=== PATIENT | male | born 1955 | race Caucasian/White ===

== ENCOUNTER → 2017-11-06 | Outpatient (CLI) | payer OTHER ==
[~2017-11-06] MED LIST: OMNIPAQUE 350 MG/ML, 100ML BOTTLE ONE
== END | disposition home or self-care (01) ==
LOC: CFH 12:01
PROVIDERS: ATTEND Thoracic Surgery (Cardiothoracic Vascular Surgery)
DX: I71.9 Aortic aneurysm of unspecified site, without rupture (principal)
CPT/HCPCS: 71275; 82565; Q9967

== ENCOUNTER 2017-11-16 17:17 | Inpatient (IN) | payer OTHER ==
[~2017-11-16] VITALS: Ht 175.3 cm; Wt 100.6 kg
[2017-11-16] MEDS ORDERED: TRAZ50TA18 PO (17:44)
[2017-11-16] MEDS ORDERED: ATOR40TA78 PO (17:44)
[2017-11-16] MEDS ORDERED: DULO20CA45 PO (17:44)
[2017-11-16] MEDS ORDERED: ALLO100T30 PO (17:44)
[2017-11-16] MEDS ORDERED: GABA300C10 PO ×3 (17:44→21:32)
[2017-11-16] MEDS ORDERED: OMEP-110 PO (17:44)
[2017-11-16] MEDS ORDERED: SODIUM CHLORIDE FLUSH 10ML SYR IVF ONE (18:00)
[2017-11-16] MEDS ORDERED: PLEASE ENTER ALLERGIES MC SCH (18:00)
[2017-11-16 18:25] LABS: BASOPHILS # (AUTO) 0.05 x10^3/uL (0-0.1); BASOPHILS % (AUTO) 1 % (0-1); EOSINOPHILS # (AUTO) 0.08 x10^3/uL (0-0.4); EOSINOPHILS % (AUTO) 1 % (1-7); LYMPHOCYTES % (AUTO) 36 % (22-44); MD NO; MEAN CORPUSCULAR HEMOGLOBIN 34.8 pg (27.5-34.5); MEAN CORPUSCULAR HGB CONC 34.8 g/dL (33.2-36.2); MEAN CORPUSCULAR VOLUME 100.1 fL (81-97); MEAN PLATELET VOLUME 7.6 fL (7.4-10.4); MONOCYTES % (AUTO) 10 % (2-9); NEUTROPHILS # (AUTO) 3.84 x10^3/uL (1.8-6.8); NEUTROPHILS % (AUTO) 53 % (42-75); PLATELET COUNT 182 x10^3/uL (130-400); RED BLOOD COUNT 4.68 x10^6/uL (4.38-5.82); RED CELL DISTRIBUTION WIDTH 13.4 % (9.4-14.8)
[2017-11-16] MEDS ORDERED: DICL75TA2 PO (18:26)
[2017-11-16] MEDS ORDERED: CYCL-259 PO (18:26)
[2017-11-16] MEDS ORDERED: INDO25CA PO (18:26)
[2017-11-16] MEDS ORDERED: CHOL100012 PO (18:26)
[2017-11-16] MEDS ORDERED: CYAN100028 PO (18:26)
[2017-11-16 18:34] LABS: INTERNATIONAL NORMALIZED RATIO 0.96 (0.93-1.1)
[2017-11-16 18:37] LABS: ALANINE AMINOTRANSFERASE 78 U/L (12-78); ALBUMIN 3.8 g/dL (3.4-5.0); ANION GAP 10 mmol/L (5-15); CALCIUM 8.2 mg/dL (8.5-10.1); CHLORIDE 108 mmol/L (98-107); CREATININE 1.12 mg/dL (0.7-1.3)
[2017-11-16 18:41] LABS: ALKALINE PHOSPHATASE 91 U/L (45-117); BILIRUBIN,TOTAL 0.6 mg/dL (0.2-1.0); TOTAL PROTEIN 7.3 g/dL (6.4-8.2); TROPONIN I 0.029 ng/mL (0.000-0.045)
[2017-11-16] MEDS ORDERED: POLYETHYLENE GLYCOL 17 GM PACKET PO PRN (20:30)
[2017-11-16] MEDS ORDERED: NICOTINE 21 MG/24 HR PATCH.TD24 TD SCH (20:30)
[2017-11-16] MEDS ORDERED: BISACODYL 10 MG SUPP PR PRN (20:30)
[2017-11-16] MEDS ORDERED: ONDANSETRON 2MG/ML, 2ML IVPush PRN (20:30)
[2017-11-16] MEDS ORDERED: morphine SULFATE 10 MG/ML, 1ML IVPush PRN (20:30)
[2017-11-16] MEDS ORDERED: CYCLOBENZAPRINE 10 MG TABLET PO PRN (20:30)
[2017-11-16] MEDS ORDERED: ACETAMINOPHEN 325 MG TABLET PO PRN (20:30)
[2017-11-16] MEDS ORDERED: NITROGLYCERIN 0.4 MG BOTTLE (25 TABS) SL PRN (20:30)
[2017-11-16] MEDS ORDERED: ATORVASTATIN 40 MG TABLET PO SCH (21:00)
[2017-11-16 21:40] VITALS: BP 121/69
[2017-11-16] MEDS: SODIUM CHLORIDE FLUSH 10ML SYR IVF SCH (23:04)
[2017-11-16] MEDS: HEPARIN 5,000 UNITS/ML, 1ML SQ SCH (23:04)
[2017-11-17 00:58] LABS: TROPONIN I 0.026 ng/mL (0.000-0.045)
[2017-11-17 04:19] VITALS: BP 146/77
[2017-11-17 05:36] LABS: CHLORIDE 106 mmol/L (98-107)
[2017-11-17 05:39] LABS: BASOPHILS # (AUTO) 0.04 x10^3/uL (0-0.1); BASOPHILS % (AUTO) 1 % (0-1); EOSINOPHILS # (AUTO) 0.12 x10^3/uL (0-0.4); EOSINOPHILS % (AUTO) 2 % (1-7); LYMPHOCYTES # (AUTO) 1.64 x10^3/uL (1-3.4); LYMPHOCYTES % (AUTO) 29 % (22-44); MD NO; MEAN CORPUSCULAR HEMOGLOBIN 34.4 pg (27.5-34.5); MEAN CORPUSCULAR HGB CONC 34.9 g/dL (33.2-36.2); MEAN CORPUSCULAR VOLUME 98.6 fL (81-97); MEAN PLATELET VOLUME 7.6 fL (7.4-10.4); MONOCYTES # (AUTO) 0.45 x10^3/uL (0.2-0.8); MONOCYTES % (AUTO) 8 % (2-9); NEUTROPHILS # (AUTO) 3.42 x10^3/uL (1.8-6.8); NEUTROPHILS % (AUTO) 60 % (42-75); PLATELET COUNT 161 x10^3/uL (130-400); RED BLOOD COUNT 4.66 x10^6/uL (4.38-5.82); RED CELL DISTRIBUTION WIDTH 13.7 % (9.4-14.8)
[2017-11-17 05:47] LABS: ALANINE AMINOTRANSFERASE 82 U/L (12-78); ALBUMIN 3.6 g/dL (3.4-5.0); ALKALINE PHOSPHATASE 81 U/L (45-117); ANION GAP 12 mmol/L (5-15); BILIRUBIN,TOTAL 0.8 mg/dL (0.2-1.0); CREATININE 1.03 mg/dL (0.7-1.3); TROPONIN I 0.023 ng/mL (0.000-0.045)
[2017-11-17 07:40] VITALS: BP 168/77
[2017-11-17] MEDS: SODIUM CHLORIDE FLUSH 10ML SYR IVF SCH (08:27)
[2017-11-17] MEDS: HEPARIN 5,000 UNITS/ML, 1ML SQ SCH (08:27)
[2017-11-17] MEDS ORDERED: ALLOPURINOL 100 MG TABLET PO SCH (09:00)
[2017-11-17] MEDS ORDERED: DICLOFENAC SODIUM 75 MG TABLET.DR PO SCH (09:00)
[2017-11-17] MEDS ORDERED: SENNA/DOCUSATE TABLET PO SCH (09:00)
[2017-11-17] MEDS ORDERED: CHOLECALCIFEROL 1,000 UNIT TABLET PO SCH (09:00)
[2017-11-17] MEDS ORDERED: GABAPENTIN 300 MG CAPSULE PO SCH (09:00)
[2017-11-17] MEDS ORDERED: TRAZODONE 50MG TABLET PO SCH (09:00)
[2017-11-17] MEDS ORDERED: CYANOCOBALAMIN 1,000 MCG TABLET PO SCH (09:00)
[2017-11-17] MEDS ORDERED: DULOXETINE 30 MG CAPSULE.DR PO SCH (09:00)
[2017-11-17] MEDS ORDERED: INDOMETHACIN 25 MG CAPSULE PO SCH (09:00)
[2017-11-17] MEDS ORDERED: OMEPRAZOLE 20 MG CAPSULE.DR PO SCH (09:00)
[2017-11-17 14:22] VITALS: BP 175/84
== END 2017-11-17 15:22 | disposition home or self-care (01) | DRG 303 ==
LOC: ED 18:26 → EDIP 19:10 → 5SO 22:21 → DCLOUNGE 11-17 15:09
PROVIDERS: ADMIT Internal Medicine; ATTEND Internal Medicine
DX: I25.10 Atherosclerotic heart disease of native coronary artery without angina pectoris (principal); E11.9 Type 2 diabetes mellitus without complications; E78.5 Hyperlipidemia, unspecified; F10.10 Alcohol abuse, uncomplicated; F12.10 Cannabis abuse, uncomplicated; M10.9 Gout, unspecified; F17.210 Nicotine dependence, cigarettes, uncomplicated; I10 Essential (primary) hypertension; I35.0 Nonrheumatic aortic (valve) stenosis; Z82.49 Family history of ischemic heart disease and other diseases of the circulatory system; Z95.1 Presence of aortocoronary bypass graft
CPT/HCPCS: 36415; 71045; 80053; 84484; 85025; 85610; 85730; 93005; 99285; J1644

== ENCOUNTER 2017-11-20 04:08 | Inpatient (IN) | payer OTHER ==
[2017-11-19 14:42] LABS: MICROSCOPIC AUTO
[2017-11-19 14:47] LABS: BASOPHILS # (AUTO) 0.03 x10^3/uL (0-0.1); BASOPHILS % (AUTO) 1 % (0-1); EOSINOPHILS # (AUTO) 0.05 x10^3/uL (0-0.4); EOSINOPHILS % (AUTO) 1 % (1-7); LYMPHOCYTES # (AUTO) 2.04 x10^3/uL (1-3.4); LYMPHOCYTES % (AUTO) 31 % (22-44); MD NO; MEAN CORPUSCULAR HGB CONC 34.5 g/dL (33.2-36.2); MEAN CORPUSCULAR VOLUME 98.5 fL (81-97); MEAN PLATELET VOLUME 7.3 fL (7.4-10.4); MONOCYTES # (AUTO) 0.56 x10^3/uL (0.2-0.8); MONOCYTES % (AUTO) 9 % (2-9); NEUTROPHILS # (AUTO) 3.88 x10^3/uL (1.8-6.8); NEUTROPHILS % (AUTO) 59 % (42-75); PLATELET COUNT 169 x10^3/uL (130-400); RED BLOOD COUNT 4.93 x10^6/uL (4.38-5.82); RED CELL DISTRIBUTION WIDTH 13.7 % (9.4-14.8)
[2017-11-19 15:03] LABS: ALANINE AMINOTRANSFERASE 93 U/L (12-78); ALBUMIN 4.1 g/dL (3.4-5.0); ANION GAP 8 mmol/L (5-15); CALCIUM 9.2 mg/dL (8.5-10.1); CHLORIDE 107 mmol/L (98-107); CREATININE 1.15 mg/dL (0.7-1.3)
[2017-11-19 15:04] LABS: INTERNATIONAL NORMALIZED RATIO 0.99 (0.93-1.1); PROTHROMBIN TIME 10.3 Seconds (9.6-11.5)
[2017-11-19 15:05] LABS: ALKALINE PHOSPHATASE 82 U/L (45-117); BILIRUBIN,TOTAL 1.5 mg/dL (0.2-1.0); TOTAL PROTEIN 7.9 g/dL (6.4-8.2)
[2017-11-19 15:23] LABS: HEMOGLOBIN A1C 4.5 % (4.2-6.3)
[~2017-11-20] VITALS: Ht 175.3 cm; Wt 100.4 kg
[~2017-11-20 04:08] MED LIST changes: +ALLO100T30 PO; +ATOR40TA78 PO; +CHOL100012 PO; +CYAN100028 PO; +CYCL-259 PO; +DICL75TA2 PO; +DULO20CA45 PO; +GABA300C10 PO; +INDO25CA PO; +OMEP-110 PO; -OMNIPAQUE 350 MG/ML, 100ML BOTTLE ONE; +TRAZ50TA18 PO
[2017-11-20 05:46] VITALS: BP_SYST 124; BP_SYST 126; BP_DIAS 75; BP_DIAS 79
[2017-11-20] MEDS ORDERED: DO NOT GIVE MC SCH (06:00)
[2017-11-20] MEDS ORDERED: CHLORHEXIDINE 15 ML BOTTLE MM SCH (06:00)
[2017-11-20] MEDS ORDERED: INSULIN LISPRO 100 UNITS/ML, PEN SQ-INSULIN SCH (06:00)
[2017-11-20] MEDS ORDERED: SUFentanil 50 MCG/ML, 5ML ONE (06:54)
[2017-11-20] MEDS ORDERED: MIDAZOLAM 10MG/2 ML ONE (06:54)
[2017-11-20] MEDS ORDERED: HEPARIN 1,000 UNITS/ML, 10ML ONE (06:56)
[2017-11-20] MEDS ORDERED: CEFUROXIME 1.5 GM in SODIUM CHLORIDE 0.9% 50 ML IVPB PRN (07:30)
[2017-11-20] MEDS ORDERED: PHENYLEPHRINE 10 MG in SODIUM CHLORIDE 0.9% 249 ML IV PRN (07:30)
[2017-11-20] MEDS ORDERED: VANCOMYCIN 1,500 MG in SODIUM CHLORIDE 0.9% 250 ML IV PRN (07:30)
[2017-11-20] MEDS ORDERED: ALBUMIN HUMAN 5% 500 ML IV PRN (07:30)
[2017-11-20] MEDS ORDERED: POTASSIUM CHLORIDE 80 MEQ, SODIUM BICARBONATE 8.4% 10 MEQ, MAGNESIUM SULFATE 0.5 GM, LI... IV PRN (07:30)
[2017-11-20] MEDS ORDERED: REGULAR INSULIN 62.5 UNITS in SODIUM CHLORIDE 0.9% 249.375 ML IV PRN ×2 (07:30→11:25)
[2017-11-20] MEDS ORDERED: EPINEPHRINE 2 MG in SODIUM CHLORIDE 0.9% 248 ML IV SCH (07:30)
[2017-11-20] MEDS ORDERED: DEXMEDETOMIDINE 200 MCG in SODIUM CHLORIDE 0.9% 48 ML IV SCH (07:30)
[2017-11-20] MEDS ORDERED: MANNITOL PMX 20% 500 ML IVPB PRN (07:30)
[2017-11-20] MEDS ORDERED: MUPIROCIN OINT 2%, 22GM TP SCH (09:00)
[2017-11-20] MEDS: DOCUSATE 100 MG CAPSULE PO SCH ×2 (09:00→20:23)
[2017-11-20] MEDS ORDERED: SODIUM CHLORIDE FLUSH 10ML SYR IVF SCH (09:00)
[2017-11-20] MEDS ORDERED: PROPOFOL 10 MG/ML, 20ML ONE ×2 (09:06→09:07)
[2017-11-20] MEDS ORDERED: VASOPRESSIN 20 UNIT/ML, 1ML ONE (09:06)
[2017-11-20] MEDS ORDERED: EPINEPHRINE 1 MG/ML, 1ML ONE (09:06)
[2017-11-20] MEDS ORDERED: ROCURONIUM 10MG/ML,5ML ONE (09:07)
[2017-11-20] MEDS ORDERED: PROTAMINE SULFATE 10 MG/ML, 25ML ONE ×2 (09:27)
[2017-11-20] MEDS ORDERED: AMIODARONE 50 MG/ML, 3ML ONE (09:57)
[2017-11-20] MEDS ORDERED: THROMBIN 5,000 UNIT VIAL TP ONE ×2 (10:20→10:25)
[2017-11-20] MEDS ORDERED: DIAZEPAM 5 MG/ML, 2ML ONE (11:07)
[2017-11-20] MEDS ORDERED: DEXMEDETOMIDINE 200 MCG in SODIUM CHLORIDE 0.9% 48 ML IV PRN (11:25)
[2017-11-20] MEDS ORDERED: VASOPRESSIN 50 UNIT in SODIUM CHLORIDE 0.9% 250 ML IV PRN (11:25)
[2017-11-20] MEDS ORDERED: DOBUTAMINE 250 MG in SODIUM CHLORIDE 0.9% 230 ML IV PRN (11:25)
[2017-11-20] MEDS ORDERED: NITROGLYCERIN/D5W PMX 250 ML IV PRN (11:25)
[2017-11-20] MEDS ORDERED: SODIUM CHLORIDE 0.9% 1,000 ML IV PRN (11:25)
[2017-11-20] MEDS ORDERED: BISACODYL 5 MG EC TABLET PO PRN (11:30)
[2017-11-20] MEDS ORDERED: ACETAMINOPHEN 325 MG TABLET PO PRN (11:30)
[2017-11-20] MEDS ORDERED: GLUCAGON 1 MG IM PRN (11:30)
[2017-11-20] MEDS ORDERED: BISACODYL 10 MG SUPP PR PRN (11:30)
[2017-11-20] MEDS ORDERED: DEXTROSE 50%, 50ML SYRINGE IVPush PRN (11:30)
[2017-11-20] MEDS ORDERED: DEXTROSE 4 GM TAB.CHEW PO PRN (11:30)
[2017-11-20] MEDS ORDERED: INSULIN REGULAR 100 UNITS/ML, 3ML VIAL IVPush PRN (11:30)
[2017-11-20] MEDS ORDERED: LACTATED RINGERS 1,000 ML IV PRN (11:30)
[2017-11-20] MEDS ORDERED: SODIUM BICARB 8.4%, 50ML SYRINGE IV PRN (11:30)
[2017-11-20] MEDS ORDERED: PROCHLORPERAZINE 5 MG/ML, 2ML IVPush PRN (11:30)
[2017-11-20] MEDS: KSCALE TO 4.5 IV SCH ×3 (11:30→23:30)
[2017-11-20] MEDS ORDERED: EPINEPHRINE 2 MG in SODIUM CHLORIDE 0.9% 248 ML IV PRN (11:30)
[2017-11-20] MEDS ORDERED: ACETAMINOPHEN 650 MG SUPP PR PRN (11:30)
[2017-11-20] MEDS ORDERED: MIDAZOLAM 1 MG/ML, 5ML IVPush PRN (11:30)
[2017-11-20] MEDS ORDERED: ONDANSETRON 2MG/ML, 2ML IVPush PRN (11:30)
[2017-11-20] MEDS ORDERED: SODIUM BICARB 8.4%, 50ML SYRINGE ONE (11:34)
[2017-11-20] MEDS ORDERED: ALBUMIN HUMAN 25% 50 ML ONE (11:35)
[2017-11-20] MEDS ORDERED: LIDOCAINE 2% 100MG/5ML SYRINGE ONE (11:35)
[2017-11-20] MEDS ORDERED: FUROSEMIDE 20 MG/2 ML ONE (11:36)
[2017-11-20] MEDS ORDERED: HEPARIN 1,000 UNITS/ML, 30ML ONE (11:37)
[2017-11-20 12:00] LABS: GLUCOSE BY BLOOD GAS ANALYZER 115 mg/dL (70-110); HEMOGLOBIN BY BLOOD GAS ANALYZ 14.4 g/dL (14.0-18.0); POTASSIUM BY BLOOD GAS ANALYZR 4.2 mmol/L (3.6-5.5)
[2017-11-20] MEDS: WARFARIN MODERAT DOSE PROTOCOL XX SCH (12:00)
[2017-11-20] MEDS: morphine SULFATE 10 MG/ML, 1ML IVPush PRN ×6 (12:09→22:52)
[2017-11-20] MEDS ORDERED: LORazepam 1MG TABLET PO PRN ×4 (13:00)
[2017-11-20] MEDS ORDERED: LORazepam 0.5MG TABLET PO PRN (13:00)
[2017-11-20] MEDS ORDERED: LORazepam 2 MG/ML, 1ML IV PRN ×5 (13:00)
[2017-11-20] MEDS: BEER 12 OZ CAN PO SCH ×2 (13:00→20:00)
[2017-11-20] MEDS: MAGNESIUM SULFATE 1 GM in SODIUM CHLORIDE 0.9% 50 ML IVPB SCH (13:15)
[2017-11-20] MEDS: INSULIN LISPRO 100 UNITS/ML, PEN SQ-INSULIN SCH ×2 (15:13→20:23)
[2017-11-20] MEDS: HYDROcodone/APAP 10/325 MG TABLET PO PRN (18:16)
[2017-11-20] MEDS: CEFUROXIME 1.5 GM in SODIUM CHLORIDE 0.9% 50 ML IVPB SCH (19:19)
[2017-11-20] MEDS ORDERED: VANCOMYCIN 1,500 MG in SODIUM CHLORIDE 0.9% 250 ML IVPB SCH (19:30)
[2017-11-20] MEDS: SODIUM CHLORIDE FLUSH 10ML SYR IVF SCH (20:16)
[2017-11-20] MEDS: MUPIROCIN OINT 2%, 22GM NAS SCH (20:23)
[2017-11-20] MEDS: HYDROcodone/APAP 5/325 TABLET PO PRN (22:11)
[2017-11-21] MEDS: OXYcodone IR 5MG TABLET PO PRN ×6 (00:08→20:42)
[2017-11-21] MEDS: HYDROcodone/APAP 10/325 MG TABLET PO PRN ×3 (01:05→10:16)
[2017-11-21] MEDS: morphine SULFATE 10 MG/ML, 1ML IVPush PRN (02:26)
[2017-11-21] MEDS: HYDROcodone/APAP 5/325 TABLET PO PRN (02:51)
[2017-11-21 04:48] LABS: BASOPHILS # (AUTO) 0.01 x10^3/uL (0-0.1); BASOPHILS % (AUTO) 0 % (0-1); EOSINOPHILS % (AUTO) 0 % (1-7); LYMPHOCYTES # (AUTO) 0.57 x10^3/uL (1-3.4); LYMPHOCYTES % (AUTO) 5 % (22-44); MD NO; MEAN CORPUSCULAR HEMOGLOBIN 34.4 pg (27.5-34.5); MEAN CORPUSCULAR HGB CONC 34.4 g/dL (33.2-36.2); MEAN CORPUSCULAR VOLUME 100.2 fL (81-97); MEAN PLATELET VOLUME 7.4 fL (7.4-10.4); MONOCYTES # (AUTO) 0.69 x10^3/uL (0.2-0.8); MONOCYTES % (AUTO) 6 % (2-9); NEUTROPHILS # (AUTO) 10.34 x10^3/uL (1.8-6.8); NEUTROPHILS % (AUTO) 89 % (42-75); PLATELET COUNT 110 x10^3/uL (130-400); RED BLOOD COUNT 3.93 x10^6/uL (4.38-5.82); RED CELL DISTRIBUTION WIDTH 13.7 % (9.4-14.8)
[2017-11-21 04:49] LABS: INTERNATIONAL NORMALIZED RATIO 1.01 (0.93-1.1); PROTHROMBIN TIME 10.5 Seconds (9.6-11.5)
[2017-11-21 04:54] LABS: ALBUMIN 3.3 g/dL (3.4-5.0); ANION GAP 8 mmol/L (5-15); CALCIUM 7.7 mg/dL (8.5-10.1); CHLORIDE 106 mmol/L (98-107); CREATININE 0.87 mg/dL (0.7-1.3)
[2017-11-21] MEDS: KSCALE TO 4.5 IV SCH (05:00)
[2017-11-21] MEDS: INSULIN LISPRO 100 UNITS/ML, PEN SQ-INSULIN SCH ×5 (06:00→21:00)
[2017-11-21] MEDS: DULOXETINE 30 MG CAPSULE.DR PO SCH (07:59)
[2017-11-21] MEDS: DOCUSATE 100 MG CAPSULE PO SCH ×2 (07:59→20:42)
[2017-11-21] MEDS ORDERED: OMEPRAZOLE 20 MG CAPSULE.DR PO PRN (08:00)
[2017-11-21] MEDS: METOPROLOL TARTRATE 25 MG TABLET PO/NG SCH ×2 (08:00→20:48)
[2017-11-21] MEDS: ASPIRIN 81 MG TABLET EC PO SCH (08:00)
[2017-11-21] MEDS: ALLOPURINOL 300 MG TABLET PO SCH (08:00)
[2017-11-21] MEDS: GABAPENTIN 300 MG CAPSULE PO SCH ×3 (08:00→20:42)
[2017-11-21] MEDS: MUPIROCIN OINT 2%, 22GM NAS SCH ×2 (08:01→20:41)
[2017-11-21] MEDS: SODIUM CHLORIDE FLUSH 10ML SYR IVF SCH ×3 (08:01→21:00)
[2017-11-21] MEDS: CEFUROXIME 1.5 GM in SODIUM CHLORIDE 0.9% 50 ML IVPB SCH (08:01)
[2017-11-21] MEDS: BEER 12 OZ CAN PO SCH ×3 (08:13→16:58)
[2017-11-21] MEDS: WARFARIN BIOPROSTHETIC VALVE PROTOCOL 2-3 XX SCH (08:20)
[2017-11-21] MEDS ORDERED: ALLOPURINOL 100 MG TABLET PO SCH (09:00)
[2017-11-21] MEDS ORDERED: MAGNESIUM HYDROXIDE 8%, 30ML UDC PO PRN (09:30)
[2017-11-21] MEDS: FUROSEMIDE 20 MG/2 ML IV SCH ×2 (10:16→17:03)
[2017-11-21] MEDS: MAGNESIUM SULFATE 1 GM in SODIUM CHLORIDE 0.9% 50 ML IVPB SCH (11:51)
[2017-11-21] MEDS: CHLORHEXIDINE 15 ML BOTTLE MM SCH ×2 (11:52→20:49)
[2017-11-21] MEDS: WARFARIN MODERAT DOSE PROTOCOL XX SCH (12:47)
[2017-11-21 14:30] VITALS: BP 101/66
[2017-11-21] MEDS: POTASSIUM CHLORIDE 10 MEQ TABLET.ER PO SCH (17:03)
[2017-11-21] MEDS ORDERED: WARFARIN 7.5 MG TABLET PO-COUM SCH (18:00)
[2017-11-21 20:19] VITALS: BP 103/70
[2017-11-21] MEDS: ATORVASTATIN 40 MG TABLET PO SCH (20:42)
[2017-11-21] MEDS: TRAZODONE 50MG TABLET PO SCH (21:00)
[2017-11-22 01:17] VITALS: BP 116/70
[2017-11-22] MEDS: OXYcodone IR 5MG TABLET PO PRN ×5 (02:13→23:57)
[2017-11-22 05:18] LABS: INTERNATIONAL NORMALIZED RATIO 0.99 (0.93-1.1); PROTHROMBIN TIME 10.3 Seconds (9.6-11.5)
[2017-11-22 05:21] LABS: ANION GAP 7 mmol/L (5-15); CHLORIDE 99 mmol/L (98-107); CREATININE 0.98 mg/dL (0.7-1.3)
[2017-11-22 05:47] LABS: MEAN CORPUSCULAR HEMOGLOBIN 34.9 pg (27.5-34.5); MEAN CORPUSCULAR HGB CONC 34.9 g/dL (33.2-36.2); MEAN CORPUSCULAR VOLUME 100.1 fL (81-97); RED BLOOD COUNT 3.18 x10^6/uL (4.38-5.82); RED CELL DISTRIBUTION WIDTH 13.5 % (9.4-14.8)
[2017-11-22 06:26] LABS: BASOPHILS # (AUTO) 0.03 x10^3/uL (0-0.1); BASOPHILS % (AUTO) 0 % (0-1); EOSINOPHILS # (AUTO) 0.02 x10^3/uL (0-0.4); EOSINOPHILS % (AUTO) 0 % (1-7); LYMPHOCYTES # (AUTO) 0.94 x10^3/uL (1-3.4); LYMPHOCYTES % (AUTO) 10 % (22-44); MD SCAN; MONOCYTES # (AUTO) 0.66 x10^3/uL (0.2-0.8); MONOCYTES % (AUTO) 7 % (2-9); NEUTROPHILS # (AUTO) 7.41 x10^3/uL (1.8-6.8); NEUTROPHILS % (AUTO) 82 % (42-75); PLATELET COUNT 80 x10^3/uL (130-400)
[2017-11-22] MEDS: INSULIN LISPRO 100 UNITS/ML, PEN SQ-INSULIN SCH ×4 (07:00→21:00)
[2017-11-22] MEDS: BEER 12 OZ CAN PO SCH ×3 (08:00→16:26)
[2017-11-22] MEDS: GABAPENTIN 300 MG CAPSULE PO SCH ×3 (08:24→20:57)
[2017-11-22] MEDS: ALLOPURINOL 300 MG TABLET PO SCH (08:25)
[2017-11-22] MEDS: ENOXAPARIN 40 MG/0.4 ML SQ SCH (08:26)
[2017-11-22] MEDS: DULOXETINE 30 MG CAPSULE.DR PO SCH (08:27)
[2017-11-22] MEDS: POTASSIUM CHLORIDE 10 MEQ TABLET.ER PO SCH ×2 (08:27→16:22)
[2017-11-22] MEDS: ASPIRIN 81 MG TABLET EC PO SCH (08:27)
[2017-11-22] MEDS: DOCUSATE 100 MG CAPSULE PO SCH ×2 (08:27→20:57)
[2017-11-22] MEDS: SODIUM CHLORIDE FLUSH 10ML SYR IVF SCH ×4 (08:28→21:00)
[2017-11-22] MEDS: WARFARIN BIOPROSTHETIC VALVE PROTOCOL 2-3 XX SCH (08:28)
[2017-11-22] MEDS: METOPROLOL TARTRATE 25 MG TABLET PO/NG SCH ×2 (08:28→20:58)
[2017-11-22] MEDS: MUPIROCIN OINT 2%, 22GM NAS SCH ×2 (08:29→20:57)
[2017-11-22] MEDS: FUROSEMIDE 20 MG/2 ML IV SCH ×3 (08:29→16:21)
[2017-11-22 08:33] VITALS: BP 103/70
[2017-11-22] MEDS ORDERED: POTASSIUM CHLORIDE 10 MEQ TABLET.ER PO SCH (09:00)
[2017-11-22] MEDS: WARFARIN MODERAT DOSE PROTOCOL XX SCH (12:00)
[2017-11-22] MEDS: MAGNESIUM SULFATE 1 GM in SODIUM CHLORIDE 0.9% 50 ML IVPB SCH (12:19)
[2017-11-22] MEDS: CHLORHEXIDINE 15 ML BOTTLE MM SCH ×2 (12:22→21:00)
[2017-11-22 16:28] VITALS: BP 110/75
[2017-11-22] MEDS ORDERED: WARFARIN 7.5 MG TABLET PO-COUM SCH (18:00)
[2017-11-22 20:52] VITALS: BP 132/83
[2017-11-22] MEDS: ATORVASTATIN 40 MG TABLET PO SCH (20:57)
[2017-11-22] MEDS: TRAZODONE 50MG TABLET PO SCH (21:00)
[2017-11-23 03:56] VITALS: BP 120/85
[2017-11-23] MEDS: OXYcodone IR 5MG TABLET PO PRN ×4 (03:59→20:42)
[2017-11-23 04:53] LABS: INTERNATIONAL NORMALIZED RATIO 1.01 (0.93-1.1); PROTHROMBIN TIME 10.5 Seconds (9.6-11.5)
[2017-11-23 04:56] LABS: ANION GAP 6 mmol/L (5-15); CHLORIDE 100 mmol/L (98-107)
[2017-11-23 04:59] LABS: CREATININE 0.75 mg/dL (0.7-1.3)
[2017-11-23 05:12] LABS: BASOPHILS # (AUTO) 0.02 x10^3/uL (0-0.1); BASOPHILS % (AUTO) 0 % (0-1); EOSINOPHILS # (AUTO) 0.11 x10^3/uL (0-0.4); EOSINOPHILS % (AUTO) 1 % (1-7); LYMPHOCYTES # (AUTO) 1.26 x10^3/uL (1-3.4); LYMPHOCYTES % (AUTO) 14 % (22-44); MD SCAN; MEAN CORPUSCULAR HEMOGLOBIN 35.2 pg (27.5-34.5); MEAN CORPUSCULAR HGB CONC 35.1 g/dL (33.2-36.2); MEAN CORPUSCULAR VOLUME 100.4 fL (81-97); MEAN PLATELET VOLUME 7.9 fL (7.4-10.4); MONOCYTES # (AUTO) 0.82 x10^3/uL (0.2-0.8); MONOCYTES % (AUTO) 9 % (2-9); NEUTROPHILS # (AUTO) 6.85 x10^3/uL (1.8-6.8); NEUTROPHILS % (AUTO) 76 % (42-75); PLATELET COUNT 75 x10^3/uL (130-400); RED CELL DISTRIBUTION WIDTH 13.2 % (9.4-14.8)
[2017-11-23] MEDS: INSULIN LISPRO 100 UNITS/ML, PEN SQ-INSULIN SCH (07:00)
[2017-11-23] MEDS: BEER 12 OZ CAN PO SCH ×3 (07:29→16:31)
[2017-11-23] MEDS: ENOXAPARIN 40 MG/0.4 ML SQ SCH (07:36)
[2017-11-23] MEDS: FUROSEMIDE 20 MG/2 ML IV SCH ×4 (07:36→17:07)
[2017-11-23] MEDS: DOCUSATE 100 MG CAPSULE PO SCH ×2 (07:59→20:38)
[2017-11-23] MEDS: METOPROLOL TARTRATE 25 MG TABLET PO/NG SCH ×2 (07:59→20:42)
[2017-11-23] MEDS: ASPIRIN 81 MG TABLET EC PO SCH (07:59)
[2017-11-23] MEDS: DULOXETINE 30 MG CAPSULE.DR PO SCH (07:59)
[2017-11-23] MEDS: GABAPENTIN 300 MG CAPSULE PO SCH ×3 (07:59→20:38)
[2017-11-23 08:00] VITALS: BP 137/78
[2017-11-23] MEDS: SODIUM CHLORIDE FLUSH 10ML SYR IVF SCH ×4 (08:00→20:37)
[2017-11-23] MEDS: ALLOPURINOL 300 MG TABLET PO SCH (08:00)
[2017-11-23] MEDS: POTASSIUM CHLORIDE 10 MEQ TABLET.ER PO SCH ×2 (08:00→17:06)
[2017-11-23] MEDS: MUPIROCIN OINT 2%, 22GM NAS SCH ×2 (08:07→20:38)
[2017-11-23] MEDS: WARFARIN BIOPROSTHETIC VALVE PROTOCOL 2-3 XX SCH (09:00)
[2017-11-23] MEDS ORDERED: FILTER 0.22 MICRON IV PRN (10:30)
[2017-11-23] MEDS ORDERED: AMIODARONE 150 MG in DEXTROSE 5% 100 ML IV ONE (10:30)
[2017-11-23] MEDS ORDERED: AMIODARONE 900 MG in DEXTROSE 5% 482 ML IV PRN (10:45)
[2017-11-23] MEDS: MAGNESIUM CITRATE 300ML ORAL SOL PO PRN (11:09)
[2017-11-23] MEDS: WARFARIN MODERAT DOSE PROTOCOL XX SCH (12:34)
[2017-11-23] MEDS ORDERED: WARFARIN MODERAT DOSE PROTOCOL XX SCH (12:45)
[2017-11-23 16:25] VITALS: BP 117/71
[2017-11-23] MEDS ORDERED: WARFARIN 7.5 MG TABLET PO-COUM ONE (18:00)
[2017-11-23] MEDS: TRAZODONE 50MG TABLET PO SCH (20:38)
[2017-11-23] MEDS: ATORVASTATIN 40 MG TABLET PO SCH (20:38)
[2017-11-23 20:45] VITALS: BP 121/84
[2017-11-24] MEDS: OXYcodone IR 5MG TABLET PO PRN ×4 (00:58→20:52)
[2017-11-24 02:09] VITALS: BP 108/71
[2017-11-24 05:14] LABS: BASOPHILS # (AUTO) 0.03 x10^3/uL (0-0.1); BASOPHILS % (AUTO) 0 % (0-1); EOSINOPHILS # (AUTO) 0.09 x10^3/uL (0-0.4); EOSINOPHILS % (AUTO) 1 % (1-7); LYMPHOCYTES # (AUTO) 1.11 x10^3/uL (1-3.4); LYMPHOCYTES % (AUTO) 17 % (22-44); MD NO; MEAN CORPUSCULAR HEMOGLOBIN 35.4 pg (27.5-34.5); MEAN CORPUSCULAR HGB CONC 35.6 g/dL (33.2-36.2); MEAN CORPUSCULAR VOLUME 99.5 fL (81-97); MEAN PLATELET VOLUME 7.5 fL (7.4-10.4); MONOCYTES # (AUTO) 0.69 x10^3/uL (0.2-0.8); MONOCYTES % (AUTO) 10 % (2-9); NEUTROPHILS # (AUTO) 4.74 x10^3/uL (1.8-6.8); NEUTROPHILS % (AUTO) 71 % (42-75); PLATELET COUNT 127 x10^3/uL (130-400); RED BLOOD COUNT 3.03 x10^6/uL (4.38-5.82); RED CELL DISTRIBUTION WIDTH 13.1 % (9.4-14.8)
[2017-11-24 05:15] LABS: INTERNATIONAL NORMALIZED RATIO 1.27 (0.93-1.1); PROTHROMBIN TIME 13.1 Seconds (9.6-11.5)
[2017-11-24 05:26] LABS: ANION GAP 8 mmol/L (5-15); CALCIUM 8.4 mg/dL (8.5-10.1); CHLORIDE 97 mmol/L (98-107)
[2017-11-24 05:27] LABS: CREATININE 1.08 mg/dL (0.7-1.3)
[2017-11-24 06:50] VITALS: BP 110/75
[2017-11-24] MEDS: BEER 12 OZ CAN PO SCH ×3 (08:00→17:53)
[2017-11-24] MEDS: FUROSEMIDE 20 MG/2 ML IV SCH ×3 (08:08→17:08)
[2017-11-24] MEDS: DULOXETINE 30 MG CAPSULE.DR PO SCH (08:09)
[2017-11-24] MEDS: ALLOPURINOL 300 MG TABLET PO SCH (08:09)
[2017-11-24] MEDS: POTASSIUM CHLORIDE 10 MEQ TABLET.ER PO SCH ×2 (08:10→17:08)
[2017-11-24] MEDS: ASPIRIN 81 MG TABLET EC PO SCH (08:10)
[2017-11-24] MEDS: DOCUSATE 100 MG CAPSULE PO SCH ×2 (08:10→20:51)
[2017-11-24] MEDS: GABAPENTIN 300 MG CAPSULE PO SCH ×3 (08:11→20:52)
[2017-11-24] MEDS: ENOXAPARIN 40 MG/0.4 ML SQ SCH (08:11)
[2017-11-24] MEDS: MUPIROCIN OINT 2%, 22GM NAS SCH ×2 (08:12→20:51)
[2017-11-24] MEDS: SODIUM CHLORIDE FLUSH 10ML SYR IVF SCH ×4 (08:12→20:51)
[2017-11-24] MEDS: METOPROLOL TARTRATE 25 MG TABLET PO/NG SCH ×2 (08:13→20:52)
[2017-11-24] MEDS: WARFARIN BIOPROSTHETIC VALVE PROTOCOL 2-3 XX SCH (08:27)
[2017-11-24] MEDS: AMIODARONE 200 MG TABLET PO SCH ×2 (09:30→20:52)
[2017-11-24] MEDS: WARFARIN MODERAT DOSE PROTOCOL XX SCH (10:46)
[2017-11-24] MEDS: MAGNESIUM CITRATE 300ML ORAL SOL PO PRN (11:26)
[2017-11-24 14:09] VITALS: BP 104/73
[2017-11-24] MEDS ORDERED: WARFARIN 10 MG TABLET PO-COUM ONE (18:00)
[2017-11-24 20:48] VITALS: BP 124/75
[2017-11-24] MEDS: ATORVASTATIN 40 MG TABLET PO SCH (20:52)
[2017-11-24] MEDS: TRAZODONE 50MG TABLET PO SCH (20:52)
[2017-11-25 02:44] VITALS: BP 111/73
[2017-11-25] MEDS: OXYcodone IR 5MG TABLET PO PRN ×3 (02:44→12:08)
[2017-11-25 04:55] LABS: BASOPHILS # (AUTO) 0.03 x10^3/uL (0-0.1); BASOPHILS % (AUTO) 1 % (0-1); EOSINOPHILS # (AUTO) 0.12 x10^3/uL (0-0.4); EOSINOPHILS % (AUTO) 3 % (1-7); LYMPHOCYTES # (AUTO) 0.89 x10^3/uL (1-3.4); LYMPHOCYTES % (AUTO) 19 % (22-44); MD NO; MEAN CORPUSCULAR HGB CONC 34.5 g/dL (33.2-36.2); MEAN CORPUSCULAR VOLUME 98.5 fL (81-97); MEAN PLATELET VOLUME 6.7 fL (7.4-10.4); MONOCYTES # (AUTO) 0.77 x10^3/uL (0.2-0.8); MONOCYTES % (AUTO) 16 % (2-9); NEUTROPHILS # (AUTO) 2.99 x10^3/uL (1.8-6.8); NEUTROPHILS % (AUTO) 62 % (42-75); PLATELET COUNT 183 x10^3/uL (130-400); RED BLOOD COUNT 3.13 x10^6/uL (4.38-5.82); RED CELL DISTRIBUTION WIDTH 12.9 % (9.4-14.8)
[2017-11-25 04:58] LABS: INTERNATIONAL NORMALIZED RATIO 2.01 (0.93-1.1); PROTHROMBIN TIME 20.6 Seconds (9.6-11.5)
[2017-11-25 05:07] LABS: ANION GAP 6 mmol/L (5-15); CALCIUM 8.4 mg/dL (8.5-10.1); CHLORIDE 97 mmol/L (98-107)
[2017-11-25 05:09] LABS: CREATININE 1.27 mg/dL (0.7-1.3)
[2017-11-25 06:30] VITALS: BP 100/65
[2017-11-25] MEDS: BEER 12 OZ CAN PO SCH ×2 (08:00→13:00)
[2017-11-25] MEDS: POTASSIUM CHLORIDE 10 MEQ TABLET.ER PO SCH (08:25)
[2017-11-25] MEDS: METOPROLOL TARTRATE 25 MG TABLET PO/NG SCH (08:25)
[2017-11-25] MEDS: AMIODARONE 200 MG TABLET PO SCH (08:25)
[2017-11-25] MEDS: GABAPENTIN 300 MG CAPSULE PO SCH (08:25)
[2017-11-25] MEDS: DULOXETINE 30 MG CAPSULE.DR PO SCH (08:25)
[2017-11-25] MEDS: MUPIROCIN OINT 2%, 22GM NAS SCH (08:26)
[2017-11-25] MEDS: FUROSEMIDE 20 MG/2 ML IV SCH (08:26)
[2017-11-25] MEDS: ASPIRIN 81 MG TABLET EC PO SCH (08:26)
[2017-11-25] MEDS: ENOXAPARIN 40 MG/0.4 ML SQ SCH (08:26)
[2017-11-25] MEDS: ALLOPURINOL 300 MG TABLET PO SCH (08:27)
[2017-11-25] MEDS: SODIUM CHLORIDE FLUSH 10ML SYR IVF SCH ×2 (08:40)
[2017-11-25] MEDS: DOCUSATE 100 MG CAPSULE PO SCH (08:41)
[2017-11-25] MEDS: WARFARIN BIOPROSTHETIC VALVE PROTOCOL 2-3 XX SCH (08:42)
[2017-11-25] MEDS ORDERED: METOPROLOL TARTRATE 25 MG TABLET PO/NG SCH ×2 (09:00)
[2017-11-25] MEDS ORDERED: POTA10TA5 PO (10:45)
[2017-11-25] MEDS ORDERED: AMIO200T42 PO (10:45)
[2017-11-25] MEDS ORDERED: WARF5TAB PO-COUM (10:45)
[2017-11-25] MEDS ORDERED: ASPI-621 PO (10:45)
[2017-11-25] MEDS ORDERED: FURO10VI37 PO (10:45)
[2017-11-25] MEDS ORDERED: METO25TA35 PO/NG (10:45)
[2017-11-25] MEDS ORDERED: OXYC5TAB3 PO (10:45)
[2017-11-25] MEDS: WARFARIN MODERAT DOSE PROTOCOL XX SCH (12:00)
[2017-11-25] MEDS ORDERED: WARFARIN 5 MG TABLET PO-COUM ONE (18:00)
== END 2017-11-25 14:00 | disposition home or self-care (01) | DRG 219 ==
LOC: 5SO 04:08 → CSU 11:15 → 5SO 11-21 14:04 → DCLOUNGE 11-25 13:35
PROVIDERS: ADMIT Thoracic Surgery (Cardiothoracic Vascular Surgery); ATTEND Thoracic Surgery (Cardiothoracic Vascular Surgery)
PROC: 02RF08Z Replacement of Aortic Valve with Zooplastic Tissue, Open Approach (ICD-10-PCS; 2017-11-20)
PROC: 5A1221Z Performance of Cardiac Output, Continuous (ICD-10-PCS; 2017-11-20)
PROC: 02QX0ZZ Repair Thoracic Aorta, Ascending/Arch, Open Approach (ICD-10-PCS; 2017-11-20)
PROC: B24BZZ4 Ultrasonography of Heart with Aorta, Transesophageal (ICD-10-PCS; principal; 2017-11-20 07:30)
DX: I35.2 Nonrheumatic aortic (valve) stenosis with insufficiency (principal); J96.01 Acute respiratory failure with hypoxia; I47.2 Ventricular tachycardia; I24.0 Acute coronary thrombosis not resulting in myocardial infarction; I71.2 Thoracic aortic aneurysm, without rupture; I48.91 Unspecified atrial fibrillation; I12.9 Hypertensive chronic kidney disease with stage 1 through stage 4 chronic kidney disease, or unspecified chronic kidney disease; G47.33 Obstructive sleep apnea (adult) (pediatric); F43.10 Post-traumatic stress disorder, unspecified; F17.200 Nicotine dependence, unspecified, uncomplicated; F10.10 Alcohol abuse, uncomplicated; E66.9 Obesity, unspecified; E78.5 Hyperlipidemia, unspecified; K21.9 Gastro-esophageal reflux disease without esophagitis; N18.9 Chronic kidney disease, unspecified; Z68.32 Body mass index [BMI] 32.0-32.9, adult
CPT/HCPCS: 36415; 36600; 71045; 71046; 80048; 80053; 81001; 82040; 82330; 82800; 82803; 82810; 82947; 82962; 83036; 83735; 84132; 84295; 85014; 85018; 85025; 85049; 85347; 85610; 85730; 86850; 86900; 86923; 87081; 88304; 88305; 88311; 93005; 93312; 93321; 93325; 93880; 93970; 94002; 94060; C1768; J0171; J0697; J1644; J1650; J1815; J2250; J2405; J2704; J2720; J3360; J3370; J3475; J3480; J3490; P9045; P9047; J0282; J1940; J2270; J2370; J7050; J7060